=== PATIENT | male | born 1955 | race Caucasian/White ===

== ENCOUNTER 2016-11-24 13:43 | Inpatient (IN) | payer OTHER ==
[~2016-11-24] VITALS: Ht 188 cm; Wt 115.2 kg
--- NOTE | 2016-11-24 13:43 | NUR ---
ARRIVAL TO ER PATIENT ARRIVED TO ER VIA WHEELCHAIR FROM OUTPATIENT SURGICAL WAITING AREA WITH CLARENCE RAPP RN OR. REPORT RECEIVED FROM CLARENCE CALL OR. PATIENT VERBALIZED THAT WE WAS WAITING IN THE WAITING ROOM FOR HIS THAT WAS HAVING SURGERY WHEN HE BECAME LIGHT HEADED AND DIZZY. PATIENT DENIES LOC BUT VERBALIZED THAT IF HE WOULDN'T HAVE SAT DOWN HE MAY HAVE PASSED OUT. PATIENT VERBALIZED HE WAS DIAGNOSED WITH STREP THROAT YESTERDAY AND HAD NOTED A "DIZZINESS" FEELING OFF AND ON FOR A COUPLE DAYS NOW. AAOX3. PERRL. LUNGS CTA IN ALL HALE. RR 18 EVEN AND NON LABORED. O2 SAT 97% ON RA. ABD SOFT AND NON TENDER. BOWEL SOUNDS ACTIVEX4. PATIENT DENIES PAIN ANYWHERE AT THIS TIME. PATIENT DENIES ANY CHEST PAIN, TIGHTNESS, OR SHORTNESS OF BREATH, THOUGH HE DOES MENTION HAVE EXERTIONAL SOB. DR. FANG CALLED PER PATIENT AND FAMILY REQUEST. VITALS AND PATIENT STATUS REPORTED TO DR. RUTLEDGE. VERBALIZED UNDERSTANDING.
--- NOTE | 2016-11-24 13:45 | NUR ---
RT ZEB RT AT BEDSIDE FOR EKG.
--- NOTE | 2016-11-24 13:49 | NUR ---
DR LEONCIO FANG AT PT BEDSIDE AT THIS TIME
--- NOTE | 2016-11-24 13:55 | NUR ---
IV/LABS IV 20G STARTED TO R HAND MAINTAINING ASEPTIC TECHNIQUE. LABS DRAWN THOUGH IV AT THIS TIME. IV FLUSHES WELL WITH PROPER BLOOD RETURN NOTED.
[2016-11-24 14:03] LABS: BASOPHIL % 0.1 % (0.0-0.2); EOSINOPHIL # 0.1 10^3/uL (0.0-0.2); EOSINOPHIL % 0.6 % (0.0-5.0); HEMOGLOBIN 14.2 g/dL (13.9-16.3); LYMPHOCYTES # 0.7 10^3/uL (1.0-4.8); LYMPHOCYTES % 4.6 % (24.0-44.0); MEAN CELL HGB 30.1 pg (26-34); MEAN CELL HGB CONCENTRATION 32.2 g/dL (33-37); MEAN CORP VOLUME 93.4 fL (78-100); MEAN PLATELET VOLUME 9.1 fL (7.8-11.0); MONOCYTES # 0.8 10^3/uL (0.3-0.8); MONOCYTES % 5.2 % (5.0-12.0); NEUTROPHIL # 13.5 10^3/uL (1.8-7.7); NEUTROPHILS % 89.3 % (41.0-85.0); RED CELL DISTRIBUTION WIDTH 14.8 % (11.5-14.5); WHITE BLOOD CELL 15.2 10^3/uL (4.5-11.0)
[2016-11-24] MEDS ORDERED: CLOP75TA52 PO (14:21)
[2016-11-24] MEDS ORDERED: THYR16.2 PO (14:21)
[2016-11-24] MEDS ORDERED: ASPI-484 PO (14:21)
[2016-11-24] MEDS ORDERED: LISI1TAB5 PO (14:21)
[2016-11-24] MEDS ORDERED: LOVA40TA2 PO (14:21)
[2016-11-24 14:23] LABS: ABG PCO2 34.2 mmHg (35.0-45.0); ABG PH 7.477 (7.350-7.450); BE(B) 1.7 mmol/L (-2.0-2.0); HCO3act 24.7 mmol/L (22.0-26.0)
[2016-11-24] MEDS ORDERED: METO50TA2 PO (14:23)
--- NOTE | 2016-11-24 14:35 | PCM.EKG ---
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
[2016-11-24 14:37] LABS: ALANINE AMINOTRANSFERASE 20 U/L (12-78); ALKALINE PHOSPHATASE 68 U/L (50-136); ASPARTATE AMINO TRANSFERASE 15 U/L (0-35); CALCIUM 8.9 mg/dL (8.4-10.5); CARBON DIOXIDE 27.9 mmol/L (20.0-32); GLUCOSE 119 mg/dL (70-110)
--- NOTE | 2016-11-24 15:22 | DIREP ---
PROCEDURE:CHEST 2 VIEWS COMPARISON:None. INDICATIONS:SYNCOPE, CAD FINDINGS: LUNGS/PLEURA:No significant pulmonary parenchymal abnormalities. No effusions. VASCULATURE:Normal. Unremarkable pulmonary vasculature. CARDIAC:Normal. No cardiac silhouette abnormality or cardiomegaly. Tortuous aorta. MEDIASTINUM:Normal. No visible mass or adenopathy. BONES:Normal. No fracture or visible bony lesion. OTHER:Negative. CONCLUSION:No acute cardiopulmonary abnormalities. Dictated by: Ramesh Pacheco M.D. on 11/24/2016 at 03:20 PM
--- NOTE | 2016-11-24 15:42 | NUR ---
Sepsis Protocol Patient meets sepsis protocol guidelines with WBC 15.2, HR 98-105 with source of infection. Dr. Carson notified in order to start fluid resuscitation, verbalized he will be to the hospital shory to see the patient and to hold off on fluids until he arrives.
[2016-11-24] MEDS ORDERED: NS 1000ML 1,000 ML ONE (15:43)
--- NOTE | 2016-11-24 15:52 | NUR ---
DR LEONCIO FANG IN ED AT THIS TIME
--- NOTE | 2016-11-24 15:56 | NUR ---
Sepsis protocol Dr. Carson verbalized to [facility] but the amount of fluid will be reduced per the patients co-morbidities. NS 1000ml @ 500ml/hr started at this time per Dr. Carson.
[2016-11-24] MEDS ORDERED: NS 1000ML 1,000 ML IV ONE ×3 (16:00→18:00)
[2016-11-24] MEDS ORDERED: ZOSYN 3.375 GRAM VIAL 3.375 GM in NS 100ML 100 ML IV SCH (16:00)
[2016-11-24 16:36] LABS: BILIRUBIN,URINE NEGATIVE (NEGATIVE); UROBILINOGEN,URINE NORMAL (NEGATIVE)
[2016-11-24 16:53] LABS: APPEARANCE,URINE CLOUDY (CLEAR); UA COLOR YELLOW (YELLOW)
--- NOTE | 2016-11-24 17:50 | NUR ---
BOLUS NS BOLUS STARTED 1200ML/HR VIA PUMP.
--- NOTE | 2016-11-24 17:52 | NUR ---
ADMIT RECEIVED PT FROM ER VIA WC IN STABLE CONDITION. RECEIVED BEDSIDE REPORT AND ASSUMED CARE,
[2016-11-24] MEDS ORDERED: NORCO 5MG PO ONE (18:10)
--- NOTE | 2016-11-24 18:40 | NUR ---
Received report from off going shift
[2016-11-24] MEDS: TYLENOL PO PRN (18:58)
[2016-11-24 19:02] VITALS: BP 166/78
[2016-11-24] MEDS: CRESTOR PO SCH (21:00)
[2016-11-24 21:03] LABS: ABG PCO2 34.6 mmHg (35.0-45.0); ABG PH 7.466 (7.350-7.450); BE(B) 1.1 mmol/L (-2.0-2.0); HCO3act 24.4 mmol/L (22.0-26.0); pO2 64.7 mmHg (75.0-100.0)
[2016-11-24] MEDS: LOPRESSOR PO SCH (21:35)
[2016-11-24] MEDS: NS 1000ML/KCL 20MEQ 1,000 ML IV SCH ×2 (22:40→23:46)
[2016-11-24] MEDS: ZOSYN 3.375 GRAM VIAL 3.375 GM in NS 100ML 100 ML IV SCH (23:45)
[2016-11-25 00:17] VITALS: BP 131/75
[2016-11-25 04:36] VITALS: BP 139/76
[2016-11-25] MEDS: NS 1000ML/KCL 20MEQ 1,000 ML IV SCH (05:20)
[2016-11-25] MEDS: ZOSYN 3.375 GRAM VIAL 3.375 GM in NS 100ML 100 ML IV SCH ×4 (05:40→23:28)
[2016-11-25 05:42] LABS: HEMOGLOBIN 12.5 g/dL (13.9-16.3); MEAN CELL HGB CONCENTRATION 31.7 g/dL (33-37); MEAN CORP VOLUME 94.7 fL (78-100); RED CELL DISTRIBUTION WIDTH 14.9 % (11.5-14.5); WHITE BLOOD CELL 16.9 10^3/uL (4.5-11.0)
[2016-11-25 05:59] LABS: CALCIUM 8.1 mg/dL (8.4-10.5); CARBON DIOXIDE 25.1 mmol/L (20.0-32)
--- NOTE | 2016-11-25 07:33 | HPH ---
ADMIT DATE: 11/24/2016 CHIEF COMPLAINT: Dizziness, near syncopal episode, 103 fever the night before. 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 He denied any definite chills, but was having some degree of shortness of breath and had generalized constitutional symptoms with malaise, lethargy, and weakness, and has not been consuming enough fluids, and his temperature had been brought down with nonsteroidal agents. He saw the nurse practitioner in the morning and was prescribed a penicillin preparation, and he was in the waiting area where his was having a knee surgery done, and he became very dizzy and lightheaded, and denied any diaphoresis, no chest pain. He had progressive shortness of breath and was brought to the Emergency Room where his temperature was normal because he had taken a nonsteroidal earlier on, but he complained of weakness and dizziness, and the possibility of sepsis was considered. His heart rate is around 100 while he is on a beta paramjit, metoprolol 50 mg twice a day. He has had a prior myocardial infarction about 7 years ago, and based on historical facts, has had right coronary stenting done and was told that he did not have much damage to the left ventricle. With his heart rate of 100, lactic acid of 1.8, and leukocytosis, he was admitted with a diagnosis of possible sepsis, rule out urosepsis, for further evaluation and management. ALLERGIES: NONE KNOWN. MEDICATIONS: He has been on home medicines, which include lisinopril-HCT 20-12.5 once a day, lovastatin 40 mg once a day, aspirin 81 mg once a day, Plavix 75 mg once a day, metoprolol 50 mg twice a day, and thyroid in a natural thyroid form at 16.25 mg once a day. PAST MEDICAL HISTORY: He has a history of coronary artery disease and acute coronary event 7 years ago post stenting, moderately severe hypertension, hypertensive heart disease, obesity with BMI 32.2, history of snoring, but no definite manifestations of obstructive sleep apnea. No history of any diabetes SOCIAL HISTORY: No history of smoking. No history of any ethanol abuse. FAMILY HISTORY: Not much available from the patient, but there is a positive history of heart problems in the family. REVIEW OF SYSTEMS: Fatigue, dyspnea, recent fever. No definite chills and no obvious ____ complaint at this time. No known history of any prostate disease. PHYSICAL EXAMINATION: VITAL SIGNS: On examination when I saw him, his heart rate was 100, blood pressure 147/77 mmHg, respirations 16, and saturation 97%. GENERAL APPEARANCE: He was in no distress. HEENT: Unremarkable, actually, the throat did not appear to be significantly congested. No tonsillar enlargement was noted. NECK: No lymphadenopathy was felt, no JVD, no definite carotid bruits. CHEST: Thick chest wall. PULMONARY: Lungs with poor respiratory effort. No adventitious lung sounds noted. HEART: S1 and S2 normal. Certain degree of tachycardia noted. ABDOMEN: Rounded. No organomegaly. EXTREMITIES: Distal pulses fairly well felt. NEUROLOGIC: No focal neuro deficit documented. LABORATORY DATA: EKG: Regular sinus rhythm with small QRS complexes, probably due to thick chest wall and very small diminutive Q-wave in lead 3 and aVF noted. Lab data showed white count 15.2, hemoglobin 14.2, and shift to the left with neutrophils of 89.3. Chemistries were essentially normal. ProBNP 468 and troponin less than 0.02. Electrolytes were normal. BUN 19 and creatinine 0.98. Initial blood gas: pH 7.47, with pCO2 34, pO2 74, lactic acid 1.6. His carboxyhemoglobin 1.6, which is mildly elevated, I am not sure why. Deoxyhemoglobin was 5.5 and went up to 6.8. He is not a smoker. Urine seemed to be positive with 30 mg/dL protein, trace blood, nitrates positive, leukocyte esterase significantly positive, WBC 10 to 25 per high power field, and many bacteria were noted. Blood cultures and urine cultures were done. A chest x-ray was normal. An echocardiogram done in the Emergency Room showed mild left ventricular hypertrophy. Initially, he was thought to have wall motion abnormality at the apex, but I think his overall LV function seems to be intact, and no regional wall motion abnormality was documented. Mild left atrial enlargement, four-chamber longitudinal dimension. Generous top-normal RV size, but no significant enlargement was noted. The right atrium was normal in size, no obvious valvular abnormality documented. IMPRESSION: Sepsis based on clinical findings of urosepsis, ____, hypertension, hypertensive heart disease, mild left ventricular hypertrophy, probably chronic diastolic heart failure, no obvious mitral Doppler manifestations with reversal of E to A ratio ____ normalization ____ could contribute to grade 2 diastolic dysfunction. Definite sinus tachycardia and lactic acid elevation, which may be suggestive of early sepsis. CAD, post coronary event 7 years ago, post RCA stenting. Obesity, BMI 32.2. RECOMMENDATIONS: At this time we will start him on fluid challenge, fluid resuscitation, repeat lactic acid, blood work, and Zosyn IV. Cultures are done. Further management will depend on the clinical course. Laxmichand MD Alli DR: SUSANA/sarah JOB# [id number]
[2016-11-25 08:00] VITALS: BP 148/72
--- NOTE | 2016-11-25 09:16 | NUR ---
UROLOGY CONSULT DR JUAREZ AT BEDSIDE VISITING WITH PT
[2016-11-25] MEDS: ASPIRIN EC PO SCH (09:25)
[2016-11-25] MEDS: D5W-1/2 NS/KCL 20MEQ 1,000 ML IV SCH ×2 (09:25→19:08)
[2016-11-25] MEDS: PLAVIX PO SCH (09:25)
--- NOTE | 2016-11-25 09:25 | NUR ---
HODGSON 16F HODGSON INSERTED BY DR JUAREZ, RECTAL EXAM DONE.
[2016-11-25] MEDS: LOPRESSOR PO SCH ×2 (09:26→21:12)
[2016-11-25] MEDS: PROTONIX PO SCH (09:26)
[2016-11-25] MEDS: ARMOUR THYROID PO SCH (09:33)
--- NOTE | 2016-11-25 10:45 | CNH ---
DATE OF CONSULTATION: 11/25/2016 HISTORY OF PRESENT ILLNESS: This is a 61-year-old white male who was referred for urological evaluation due to urosepsis. The patient was admitted yesterday with high fever and a high white count and the urinalysis showed a lot of WBC in the urine and the white count was 16,000 today. The BUN and creatinine is normal and the PSA is 12+. The patient was also complaining of incomplete bladder emptying for the past few weeks with weakness and slow urinary stream. The abdomen is soft, no flank tenderness, no suprapubic tenderness, but the patient has severe urgency and frequency and nocturia twice. After post-voiding, the Flores catheter was inserted, which still has over 200 mL. So, the catheter was left in place. Rectal exam showed a prostate of 2+, firm, smooth, no nodule noted. The case was discussed with the patient and also with his daughter Archana and with Dr. Carson. PLAN: We will continue current medications and we will wait for the result of the urine culture. Gal Ruff MD DR: LEOLA/sarah JOB# [id number]
[2016-11-25 10:53] LABS: ABG PCO2 34.2 mmHg (35.0-45.0); ABG PH 7.472 (7.350-7.450); BE(B) 1.3 mmol/L (-2.0-2.0); HCO3act 24.4 mmol/L (22.0-26.0); pO2 60.1 mmHg (75.0-100.0)
[2016-11-25 12:06] VITALS: BP 129/62
--- NOTE | 2016-11-25 12:50 | NUR ---
DISCHARGE PLAN CM/SS VISITED WITH PATIENT CONCERNING HIS DISCHARGE PLAN AND NEED. PATIENT STATED HE LIVES WITH HIS IN [place], [place] WHOM IS ALSO ADMITTED IN THE [facility]. PATIENT STATED HE IS VERY INDEPENDENT ON ADLS, DOES NOT USE ANY TYPE OF DME FOR ASSISTANCE AND WORKS DAILY IN A [employer]ARD WORK[employer]OP. PATIENT DENIES NEEDS @ THIS TIME WITH CONTACT INFORMATION PROVIDED. CURRENT GOAL FOR PATIENT IS TO RETURN BACK HOME WITH TO ROUTINE SELF CARE UPON DISCHARGE. CM/SS TO CONTINUE TO FOLLOW PATIENTS PLAN OF CARE AND FOR FURTHER DISCHARGE NEEDS.
[2016-11-25] MEDS: URISPAS PO SCH ×2 (15:25→21:12)
[2016-11-25] MEDS: TYLENOL PO PRN (15:52)
[2016-11-25 16:11] VITALS: BP 134/71
--- NOTE | 2016-11-25 18:51 | NUR ---
Received report from off going shift
[2016-11-25 19:31] VITALS: BP 137/72
[2016-11-25] MEDS: CRESTOR PO SCH (21:00)
[2016-11-26 00:37] VITALS: BP 146/82
[2016-11-26] MEDS: D5W-1/2 NS/KCL 20MEQ 1,000 ML IV SCH ×3 (01:22→18:15)
[2016-11-26 04:35] VITALS: BP 141/73
[2016-11-26] MEDS: ZOSYN 3.375 GRAM VIAL 3.375 GM in NS 100ML 100 ML IV SCH (05:35)
--- NOTE | 2016-11-26 06:30 | NUR ---
REPORT received report assumed care of patient. Patient denies any wants or needs at this time. No s/s of distress noted. call light in reach. will continue to monitor.
[2016-11-26 06:57] VITALS: BP 144/88
[2016-11-26 08:49] LABS: BASOPHIL % 0.1 % (0.0-0.2); EOSINOPHIL # 0.1 10^3/uL (0.0-0.2); EOSINOPHIL % 0.5 % (0.0-5.0); HEMOGLOBIN 11.7 g/dL (13.9-16.3); LYMPHOCYTES # 0.9 10^3/uL (1.0-4.8); LYMPHOCYTES % 6.5 % (24.0-44.0); MEAN CELL HGB 29.8 pg (26-34); MEAN CELL HGB CONCENTRATION 31.4 g/dL (33-37); MEAN CORP VOLUME 94.9 fL (78-100); MEAN PLATELET VOLUME 9.4 fL (7.8-11.0); MONOCYTES # 0.6 10^3/uL (0.3-0.8); MONOCYTES % 4.1 % (5.0-12.0); NEUTROPHIL # 12.3 10^3/uL (1.8-7.7); NEUTROPHILS % 88.4 % (41.0-85.0); RED CELL DISTRIBUTION WIDTH 14.8 % (11.5-14.5); WHITE BLOOD CELL 13.9 10^3/uL (4.5-11.0)
[2016-11-26 09:43] LABS: CALCIUM 8.2 mg/dL (8.4-10.5); CARBON DIOXIDE 25.6 mmol/L (20.0-32)
[2016-11-26] MEDS: LEVAQUIN 150 ML IV SCH (09:44)
[2016-11-26] MEDS: PROTONIX PO SCH (09:46)
[2016-11-26] MEDS: ARMOUR THYROID PO SCH (09:46)
[2016-11-26] MEDS: LOPRESSOR PO SCH ×2 (09:46→21:43)
[2016-11-26] MEDS: PLAVIX PO SCH (09:46)
[2016-11-26] MEDS: ASPIRIN EC PO SCH (09:46)
[2016-11-26] MEDS: URISPAS PO SCH ×3 (09:46→21:43)
--- NOTE | 2016-11-26 10:13 | PNH ---
DATE: 11/26/2016 The patient is afebrile, vital signs are stable. The Flores catheter is in place. Urine is clear. The abdomen is soft, no flank tenderness. No suprapubic tenderness. The CBC today, the white count is down to 14,900 and we are still awaiting for the result of the urine culture and sensitivity today. Currently, the patient is doing well and is up and about. Gal Ruff MD DR: LEOLA/sarah JOB# [id number]
[2016-11-26 11:32] VITALS: BP 142/88
--- NOTE | 2016-11-26 12:11 | DIREP ---
PROCEDURE:CHEST 2 VIEWS COMPARISON:[facility], CR, XRAY CHEST 2 VWS, 11/24/2016, 03:01 PM. INDICATIONS:CAD FINDINGS: LUNGS/PLEURA:No significant pulmonary parenchymal abnormalities. No effusions. VASCULATURE:Normal. Unremarkable pulmonary vasculature. CARDIAC:Normal. No cardiac silhouette abnormality or cardiomegaly. MEDIASTINUM:Normal. No visible mass or adenopathy. BONES:Normal. No fracture or visible bony lesion. OTHER:Negative. CONCLUSION:No acute disease. No significant change has occurred. Dictated by: Arron Nguyen MD on 11/26/2016 at 12:09 PM
[2016-11-26 16:07] VITALS: BP 137/75
[2016-11-26 19:34] LABS: DIFFERENTIAL COMMENT NORMAL; LYMPHOCYTE 8 % (25-36); MONOCYTE 1 % (3-9); SEGMENTED NEUTROPHILS 90 % (31-76)
[2016-11-26 20:00] VITALS: BP 158/98
[2016-11-26] MEDS ORDERED: POTA10TA6 PO (20:25)
[2016-11-26] MEDS ORDERED: LOSA25TA2 PO (20:25)
[2016-11-26] MEDS ORDERED: FLAV100T PO (20:25)
[2016-11-26] MEDS ORDERED: ROSU10TA PO (20:25)
[2016-11-26] MEDS ORDERED: LEVO500T51 PO (20:25)
[2016-11-26] MEDS ORDERED: PANT40TA3 PO (20:25)
[2016-11-27] VITALS: BP 157/85
[2016-11-27] MEDS ORDERED: D5W-1/2 NS/KCL 20MEQ 1,000 ML ONE (02:24)
[2016-11-27] MEDS: D5W-1/2 NS/KCL 20MEQ 1,000 ML IV SCH (02:27)
--- NOTE | 2016-11-27 03:59 | PNH ---
DATE: 11/25/2016 SUBJECTIVE: The patient is feeling overall much improved. His vital signs are stable with blood pressure of 137/72 with a pulse of 68, respirations 16, 98.3 temperature and he had 99 temperature early in the morning and 97 SO2 on room air. His intake and output shows a significant positive balance of over [address] Ruff was called in consultation because of UTI and possible urosepsis and it was determined that he has had symptoms of prostatism with back pain and no definite dysuria, but he has got urinary retention, 300 mL of residual urine was documented on catheterization of the bladder. LABORATORY DATA: His white count was elevated to 16.9 from 15.2 with hemoglobin of 12.5 and his chemistries show potassium of 3.5 and calcium low at 8.1, slightly decreased total protein and albumin due to sepsis and total PSA was 12.04. His lactic acid had gone down from 1.6 to 1.2, but there was a spurious reading of 2.7, which does not seem to be correct and at the present time, it is back to 1.7. His cultures are awaited, blood culture are negative, but the urine culture showed Gram-negatives and in view of the Gram-negatives, may be better off with Levaquin 750 mg daily. IMPRESSION: Sepsis, urosepsis, hypertension, CAD, post-coronary stenting, right coronary artery 7 years ago, intact LV systolic function, obesity, PSA elevation, rule out prostatitis versus underlying prostate pathology such as cancer. At the present time one may consider this to be an inflammatory marker and with the improvement of acute infection, this may come back to normal, then he will require further evaluation by urologist. PLAN: At this time, continue same therapy, fluid resuscitation to be continued with a lower rate of 125 mL per hour and potassium intake of 30 mEq per liter and may switch him after the culture is present on Levaquin 750 mg daily, which is a better antibiotic for urosepsis. Dr. Ruff in consultation. Laxmichand MD Alli DR: SUSANA/sarah JOB# [id number]
[2016-11-27 04:29] VITALS: BP 152/84
[2016-11-27 05:48] LABS: HEMOGLOBIN 12.1 g/dL (13.9-16.3); MEAN CELL HGB CONCENTRATION 31.4 g/dL (33-37); MEAN CORP VOLUME 95.5 fL (78-100); MEAN PLATELET VOLUME 9.8 fL (7.8-11.0); RED CELL DISTRIBUTION WIDTH 14.5 % (11.5-14.5); WHITE BLOOD CELL 8.8 10^3/uL (4.5-11.0)
[2016-11-27 06:28] LABS: CALCIUM 8.5 mg/dL (8.4-10.5); CARBON DIOXIDE 30.6 mmol/L (20.0-32)
[2016-11-27] MEDS: ASPIRIN EC PO SCH (08:55)
[2016-11-27] MEDS: PROTONIX PO SCH (08:55)
[2016-11-27] MEDS: URISPAS PO SCH (08:55)
[2016-11-27] MEDS: ARMOUR THYROID PO SCH (08:55)
[2016-11-27] MEDS: PLAVIX PO SCH (08:56)
[2016-11-27] MEDS: LOPRESSOR PO SCH (08:56)
[2016-11-27] MEDS: LEVAQUIN 150 ML IV SCH (08:58)
[2016-11-27] MEDS ORDERED: COZAAR PO SCH (09:00)
[2016-11-27] MEDS ORDERED: KLOR-CON 10 PO SCH (09:00)
--- NOTE | 2016-11-27 09:01 | DSH ---
DATE OF DISCHARGE: 11/27/2016 FINAL DIAGNOSES: Sepsis, Escherichia Coli, urinary tract infection, hypertension, hypertensive heart disease, left ventricular dilatation on echo with probably hypertensive heart disease and chronic diastolic heart failure, intact LV systolic function, old myocardial infarction, post RCA stenting, dyslipidemia. Please refer to my History and Physical to the point of my impression. HOSPITAL COURSE: The patient is a 61-year-old white male who presented with a 103-degree Fahrenheit fever the night before and had chills and had a syncopal episode while waiting in the surgical waiting area when his was having a knee surgery done. He was brought to the Emergency Room and was noted to be aseptic with a white count of 15.2 with lactic acid of 1.6 and urine loaded with bacteria and pus, as well as E. Coli growing in the urine culture. An x-ray was normal and his LV was dilated. EF was normal. His potassium was low, which is up to 4 now. He has gotten better, and with fluid resuscitation and antibiotics, is being dismissed to home on: 1. Flavoxate, which is Urispas 100 mg 3 times a day. 2. Levaquin 500 mg daily for 7 days. 3. Losartan 25 mg once a day. 4. Protonix 40 mg once a day. 5. Potassium 10 mEq once a day. 6. Crestor 10 mg once a day. 7. Aspirin 81 mg once a day. 8. Plavix 75 mg once a day. 9. Metoprolol 50 mg twice a day. 10. Thyroid 16.2 mg once a day. DISCONTINUE MEDICATIONS: Stop lisinopril-HCT and lovastatin. FOLLOWUP INSTRUCTIONS: Follow up in one week if present, and may require a Lexiscan to assess his ischemic substrate. Laxmichand MD KENIA Carson: SUSANA/sarah JOB# [id number]
[2016-11-27] MEDS ORDERED: TAMS-14 PO (09:28)
[2016-11-27 10:00] VITALS: BP 152/84
--- NOTE | 2016-11-27 10:15 | NUR ---
Discharge Patient received discharge instructions. Denies any further questions or concerns. Medications called to [facility].
--- NOTE | 2016-11-27 10:57 | PNH ---
DATE: 11/26/2016 SUBJECTIVE: The patient is doing much better, afebrile. OBJECTIVE: VITAL SIGNS: Stable, afebrile. PULMONARY: The lungs are clear. CARDIOVASCULAR: Heart sounds are normal. No CVA tenderness. LABORATORY DATA: White count 13.9. Hemoglobin 11.7. Gram-negative urine, probably E. coli, we will await cultures. DISPOSITION: Discharge planning on November 27, 2016. Taylor Carson MD DR: SUSANA/sarah JOB# [id number]
== END 2016-11-27 10:15 | disposition home or self-care (01) | DRG 872 ==
LOC: ER 13:43 → MS 16:01 → EDPENDDISTM 11-27 10:15
PROVIDERS: ADMIT Specialist; ATTEND Specialist
PROC: 0T9B70Z Drainage of Bladder with Drainage Device, Via Natural or Artificial Opening (ICD-10-PCS; principal; 2016-11-25)
DX: A41.9 Sepsis, unspecified organism (principal); I11.0 Hypertensive heart disease with heart failure; I50.32 Chronic diastolic (congestive) heart failure; N39.0 Urinary tract infection, site not specified; E66.9 Obesity, unspecified; E78.5 Hyperlipidemia, unspecified; R33.9 Retention of urine, unspecified; I25.10 Atherosclerotic heart disease of native coronary artery without angina pectoris; B96.20 Unspecified Escherichia coli [E. coli] as the cause of diseases classified elsewhere; I25.2 Old myocardial infarction; Z95.5 Presence of coronary angioplasty implant and graft; Z68.32 Body mass index [BMI] 32.0-32.9, adult
CPT/HCPCS: 36415; 36600; 71020; 80053; 81000; 82550; 82553; 82803; 82948; 83605; 83735; 83880; 84153; 84443; 84484; 85025; 85027; 85379; 85610; 86677; 87040; 87077; 87086; 87186; 93005; 93307; 96360; 99285; A4338; J1642; J1956; J2543; J3480; J7030; J7050; J7070

== ENCOUNTER → 2016-12-18 | Outpatient (CLI) | payer OTHER ==
[~2016-12-18] MED LIST: ASPI-484 PO; CLOP75TA52 PO; FLAV100T PO; LEVO500T51 PO; LISI1TAB5 PO; LOSA25TA2 PO; LOVA40TA2 PO; METO50TA2 PO; PANT40TA3 PO; POTA10TA6 PO; ROSU10TA PO; TAMS-14 PO; THYR16.2 PO
== END | disposition home or self-care (01) ==
LOC: RT 08:34
PROVIDERS: ATTEND Specialist
DX: J44.9 Chronic obstructive pulmonary disease, unspecified (principal); I25.10 Atherosclerotic heart disease of native coronary artery without angina pectoris; I25.2 Old myocardial infarction; Z87.891 Personal history of nicotine dependence
CPT/HCPCS: 36415; 80061; 86140; 94060

== ENCOUNTER 2018-04-29 06:50 | Inpatient (IN) | payer OTHER, MEDICARE ==
[2018-04-28 14:10] VITALS: BP 153/90
--- NOTE | 2018-04-28 16:04 | DIREP ---
PROCEDURE:CHEST 2 VIEWS COMPARISON:[facility], CR, XRAY CHEST 2 VWS, 11/26/2016, 11:21 AM. INDICATIONS:PRE OP, CARDIAC CATH, CAD FINDINGS: LUNGS/PLEURA:Apparent mild hyperinflation. No suspicious airspace consolidation, pleural effusion or pneumothorax is identified. VASCULATURE:Normal. Unremarkable pulmonary vasculature. CARDIAC:Normal. No cardiac silhouette abnormality or cardiomegaly. MEDIASTINUM:Normal. No visible mass or adenopathy. BONES:No acute abnormality. OTHER:Negative. CONCLUSION: 1. Stable chest without acute cardiopulmonary abnormality. Dictated by: Marko Donovan M.D. On 04/28/2018 at 04:02 PM
[2018-04-28 16:21] LABS: BASOPHIL % 0.3 % (0.0-0.2); EOSINOPHIL # 0.2 10^3/uL (0.0-0.2); HEMOGLOBIN 15.3 g/dL (13.9-16.3); LYMPHOCYTES # 1.8 10^3/uL (1.0-4.8); LYMPHOCYTES % 15.9 % (24.0-44.0); MEAN CELL HGB 30.2 pg (26-34); MEAN CELL HGB CONCENTRATION 32.8 g/dL (33-37); MEAN CORP VOLUME 92.1 fL (78-100); MEAN PLATELET VOLUME 9.8 fL (7.8-11.0); MONOCYTES # 0.9 10^3/uL (0.3-0.8); MONOCYTES % 8.2 % (5.0-12.0); NEUTROPHIL # 8.3 10^3/uL (1.8-7.7); NEUTROPHILS % 73.3 % (41.0-85.0); RED CELL DISTRIBUTION WIDTH 15.3 % (11.5-14.5); WHITE BLOOD CELL 11.3 10^3/uL (4.5-11.0)
[2018-04-28 16:28] LABS: CALCIUM 8.7 mg/dL (8.4-10.5); CARBON DIOXIDE 29.8 mmol/L (20.0-32)
--- NOTE | 2018-04-28 17:08 | PCM.EKG ---
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
[2018-04-29] VITALS (42 sets, daily range): BP systolic 114–210; BP diastolic 58–95
[~2018-04-29] VITALS: Ht 188 cm; Wt 118.8 kg
[~2018-04-29 06:50] MED LIST changes: +HYDR25TA9 PO; +LEVO75TA6 PO; +LOSA100T14 PO; +METO-238 PO; -METO50TA2 PO; +METO50TA6 PO; +NS 1000ML 1,000 ML ONE; +PHENERGAN PO ONE; -ROSU10TA PO; +ROSU10TA2 PO; +ROSU20TA2 PO; +VALIUM PO ONE
[2018-04-29] MEDS ORDERED: VERSED ONE ×2 (06:54→08:09)
[2018-04-29] MEDS ORDERED: SUBLIMAZE ONE (06:54)
[2018-04-29] MEDS ORDERED: NS 1000ML 1,000 ML ONE (06:54)
[2018-04-29] MEDS ORDERED: HEPARIN ONE (06:55)
[2018-04-29] MEDS ORDERED: XYLOCAINE ONE (06:55)
[2018-04-29] MEDS: NS 1000ML 1,000 ML IV SCH ×2 (07:21→20:20)
[2018-04-29] MEDS ORDERED: NS 50ML 50 ML IV ONE (08:19)
[2018-04-29] MEDS ORDERED: ANGIOMAX IV ONE (08:19)
[2018-04-29] MEDS ORDERED: ASPIRIN ONE ×2 (08:29)
[2018-04-29] MEDS ORDERED: BRILINTA ONE (08:29)
[2018-04-29] MEDS ORDERED: PROTONIX PO ONE (08:30)
[2018-04-29] MEDS ORDERED: NS 1000ML 1,000 ML IV SCH (09:07)
--- NOTE | 2018-04-29 09:17 | NUR ---
Arrival Patient arrived on unit via stretcher to ICU 6. Report received from Amaury Martinez RN from photographic laboratory supervisor. Assumed care of pt. Angiomax infusing, to be discontinued at [address] Carson order. Heart cath site to right groin assessed, no bleeding, swelling, redness, bruising, heat or pain noted. Site soft. Oriented pt and to room. Offered pt fluids and snacks. Educated pt on flat time for 2 hours after angiomax is turned off. Pt able to sit up at 1135, pt verbalized understanding. Instructed pt to keep right leg straight, pt verbalized understanding. Educated pt on s/s of hematoma or bleeding, pt verbalized understanding. Will continue to monitor. Call light within reach.
[2018-04-29] MEDS ORDERED: ULTRAM PO PRN (09:30)
[2018-04-29] MEDS ORDERED: NORCO 5MG PO PRN (09:30)
[2018-04-29] MEDS ORDERED: SUBLIMAZE IV PRN (09:30)
[2018-04-29] MEDS ORDERED: TYLENOL PO PRN (09:30)
--- NOTE | 2018-04-29 09:52 | [facility] ---
DATE OF SERVICE: 04/29/2018 HEART CATH REPORT PRECATHETERIZATION DIAGNOSES: Abnormal myocardial perfusion scan, inferoposterior ischemia, posterior wall myocardial infarction, 7 years ago RCA stent, hypertension, hypertensive heart disease, uncontrolled risk factors of dyslipidemia and prior former smoker and obesity. POSTCATHETERIZATION DIAGNOSES: Left main is a fair size vessel. LAD is a fair size vessel with a fairly large diagonal branch and LAD is fully patent with a diagonal branch. Circumflex is a good size vessel, though the obtuse marginal branch is fully patent. Right coronary artery is a large dominant vessel with proximal RCA showing a critical eccentric 90% in-stent stenosis and balloon dilatation followed by deployment of 3.25 Xience Karen stent, 3.25 x 28 mm stent was deployed followed by post-stent balloon dilatation and good results were obtained. Left ventricle is normal in size with good wall contractility and inferoposterior wall shows mild hypokinesis, ejection fraction was around 48-50%. Descending aortic cineangiography was performed, which showed ectasia of the descending aorta and runoff showed patent both the iliacs and both femorals up to the popliteal level with mild atherosclerosis without any flow obstruction documented. ANESTHESIA: 2% lidocaine. PREOPERATIVE MEDICATIONS: Phenergan 50 mg p.o., Valium 2.5 mg p.o., Versed 3 mg IV, fentanyl 37.5 mcg IV. ANTICOAGULATION: With heparin 2000 units intra-arterially, 2000 units in the flush solution, 1000 units in the dye solution. Dye used is Omnipaque, total amount is 257 mL. CATHETERS: JL4 6-Ivorian, JR4 6-Ivorian, 6-Ivorian angled pigtail catheter and 6-Ivorian right coronary guiding catheter with sideholes. ARTERIAL TIME: 35 minutes, which includes the PCI. FLUOROSCOPY TIME: 9.2 minutes. PROCEDURES: Left heart catheterization, bilateral selective coronary arteriography, left ventriculography and descending aortic cineangiography and PCI of the right coronary artery by Dr. Crandall. NARRATION OF PROCEDURE: Under local anesthesia, right femoral artery was punctured percutaneously by arterial needle, guide wire passed in right femoral artery, 6-Ivorian Cordis sheath introduced, side port of the sheath used for femoral arterial pressure monitoring. Sheath anchored with suture. Left Bryce catheter introduced over guide wire into ascending aorta left coronary artery cannulated and left coronary angiography performed in LITHUANIAN and HACKETT projections with craniocaudal applications to visualize all branches. Left catheter exchanged for right coronary catheter and right coronary angiography performed in LITHUANIAN and HACKETT. This catheter exchanged for 6-Ivorian pigtail catheter and catheter crossed the aortic valve and left ventricular LVEDP measured and LV gram performed in 30 degrees HACKETT view with 30 mL Omnipaque dye and panning of descending aorta attempted. Patient tolerated procedure well. No complications of procedure. Angio-Seal deployed for hemostasis. HEMODYNAMICS: LVEDP is 12 mm, LV pressure is 120/12, femoral artery pressure was 120/69 with a mean of 85. No gradient across the aorta on pullback of the central catheter. FINAL CONCLUSION: Patent left main, fair size LAD with a bifurcated large diagonal branch, fully patent. Circumflex good size vessel, fully patent. RCA dominant vessel with proximal in-stent stenosis 90% eccentric stenosis with a PCI performed with balloon dilatation followed by deployment of stent and good results were obtained. Good SUKUMAR 3 flow was noted in the distal RCA. LV showed mild inferoposterior hypokinesis and ejection fraction was about 48-50%. PLAN: At this time, admit the patient in ICU. We will continue Angiomax, aspirin and Brilinta and his home medications. Laxmichand MD Alli DR: SUSANA/sarah JOB# [id number]
--- NOTE | 2018-04-29 12:12 | HPH ---
ADMIT DATE: 04/29/2018 A 63-year-old male. CHIEF COMPLAINT: Abnormal myocardial perfusion scan for heart catheterization. Both heart catheterization and PCI performed for a 90% in-stent stenosis of the right coronary artery and admitted for post-coronary stenting to ICU. HISTORY OF PRESENT ILLNESS: The patient is a 63-year-old white male with known history of hypertension, hypertensive heart disease, and about 8-9 years ago had an acute coronary event with the inferior infarct and had a PCI for the inferior wall myocardial infarction of the stent in the right coronary artery and he has got an inferoposterior ischemic substrate on the myocardial perfusion scan at the present time. He underwent cardiac catheterization and in-stent stenosis of 90% was noted in the right coronary stent and PCI was performed. The patient was admitted in the ICU for observation post-PCI. ALLERGIES: None known. MEDICATIONS: Levothroid 75 mcg once a day, metoprolol 100 mg once a day, Plavix 75 mg once a day, Crestor 20 mg once a day, hydrochlorothiazide 12.5 mg once a day, losartan 100 mg once a day, potassium 10 mEq once a day. PAST MEDICAL HISTORY: Old myocardial infarction, hypertension, hypertensive heart disease, inferior infarct, right coronary stent, obesity, chronic diastolic heart failure, mild systolic heart failure. See the details on my notes provided from the office. SOCIAL HISTORY: He is a former smoker, smoked 2 packs a day, not smoking at the present time. No history of any ethanol abuse. FAMILY HISTORY: He has history of heart problem in the family. Father had COPD. Mother of cancer of the stomach. PHYSICAL EXAMINATION: GENERAL: He is alert, awake, oriented. He weighs 260 pounds, 6 feet 2 inches tall, 150/80 blood pressure, pulse is 65, and respirations 18. HEENT: Unremarkable. NECK: No JVD, no carotid bruits. CHEST: Thick chest wall. Poor air entry bilaterally. HEART: Sounds S1, S2 normal. No murmurs or gallops. ABDOMEN: Truncal obesity. No organomegaly. Bowel sounds present. MUSCULOSKELETAL: Peripheral pulses fairly well felt. NEUROLOGIC: Intact. IMPRESSION: Right coronary in-stent stenosis post PCI with balloon dilatation and stent deployment, patient observed in ICU. Angiomax to be continued along with Brilinta 90 mg twice a day, aspirin 81 mg once a day, and continue home medications. Taylor Carson MD DR: Ashok JOB# [id number]
[2018-04-29] MEDS ORDERED: TOPROL XL PO ONE (12:29)
[2018-04-29] MEDS ORDERED: COZAAR ONE (12:29)
[2018-04-29] MEDS: COZAAR PO SCH (12:33)
[2018-04-29] MEDS: TOPROL XL PO SCH ×2 (12:33→21:27)
--- NOTE | 2018-04-29 13:16 | OPH ---
DATE OF SURGERY: 04/29/2018 ATTENDING: Dr. Taylor Carson. INDICATIONS: A 63-year-old gentleman with a history of prior PCI with stenting with diagnostic angiogram per Dr. Carson revealing 70%-80% in-stent restenosis. PROCEDURES: 1. Selective right coronary arteriography. 2. PTCA with stenting of RCA. 3. Angiomax bolus and constant infusion during the procedure. 4. Conscious sedation. TECHNIQUE: Right percutaneous femoral arteriotomy was utilized for vascular access. I engaged the right coronary artery with a 6-Lao Bryce right guiding catheter with side holes. I wired the RCA with a 0.014 rapid exchange BMW wire. I predilated the RCA stented site with a 3.0 mm plain balloon and then advanced and deployed a 3.25 mm diameter x 28 mm length Karen Xpedition drug-eluting stent at 16 atmospheres. I followed this with a 3.25 NC to 18 atmospheres overlapping the entire stented site. Final angiogram revealed 0% residual stenosis and brisk SUKUMAR 3 distal flow. FINAL CONCLUSIONS: 1. Selective right coronary arteriography. 2. PTCA with stenting of the RCA with deployment of a 3.25 mm diameter x 28 mm length Karen Xpedition drug-eluting stent deployed at 16 atmospheres, followed by a 3.25 NC overlapping inflations to 18 atmospheres. 3. Final angiogram revealing 0% residual stenosis and brisk SUKUMAR 3 distal flow. 4. Conscious sedation. COMMENT: Dr. Carson has already initiated Brilinta by loading dose and we will continue the same. Bryan Crandall MD DR: SERGIO/sarah JOB# [id number] CC: Taylor Carson MD [facility]
--- NOTE | 2018-04-29 19:23 | NUR ---
Early mobility Activity level b. Patient will be encouraged to participate in all self care activities and ambulate at least once during this shift. Patient will use bedside commode for all toileting needs.
[2018-04-29] MEDS: BRILINTA PO SCH (21:27)
[2018-04-30] VITALS (39 sets, daily range): BP systolic 101–175; BP diastolic 40–128
[2018-04-30] MEDS ORDERED: SYNTHROID ONE (05:29)
[2018-04-30] MEDS: NS 1000ML 1,000 ML IV SCH (05:32)
[2018-04-30] MEDS ORDERED: SYNTHROID PO SCH (06:30)
[2018-04-30] MEDS ORDERED: ASPIRIN ONE (07:58)
[2018-04-30] MEDS ORDERED: COZAAR ONE (07:58)
[2018-04-30] MEDS ORDERED: PROTONIX PO ONE (07:59)
[2018-04-30] MEDS: BRILINTA PO SCH (08:05)
[2018-04-30] MEDS: COZAAR PO SCH (08:05)
[2018-04-30] MEDS: TOPROL XL PO SCH (08:07)
[2018-04-30] MEDS ORDERED: ASPIRIN EC PO SCH (09:00)
[2018-04-30] MEDS ORDERED: PROTONIX PO SCH (09:00)
--- NOTE | 2018-04-30 09:30 | NUR ---
DISCHARGE PLAN CASE MANAGEMENT VISITED WITH PATIENT CONCERNING DISCHARGE PLAN AND NEEDS. LIVES AT HOME WITH . IS VERY INDEPENDENT OF ADLS. DENIES NEED FOR DME OR HOME OXYGEN. REFUSED HOME HEALTH OR OUTPATIENT SERVICES. DR. FANG IS PCP. HAS FINANCIAL ABILITY TO FOR MEDICATIONS UPON DISCHARGE IF NEEDED. DISCHARGE GOAL IS TO DISCHARGE HOME WITH AND CONTINUE SELF CARE. CM WILL CONTINUE TO FOLLOW FOR DISCHARGE NEEDS.
--- NOTE | 2018-04-30 09:50 | NUR ---
Dr. Alli Carson at bedside. New orders received for discharge.
[2018-04-30] MEDS ORDERED: AMLO2.5T2 PO (10:04)
[2018-04-30] MEDS ORDERED: PANT40TA3 PO (10:04)
[2018-04-30] MEDS ORDERED: LOSA50TA2 PO (10:04)
[2018-04-30] MEDS ORDERED: TICA90TA PO (10:04)
--- NOTE | 2018-04-30 11:10 | NUR ---
Ambulation Pt ambulated to bathroom with no assistance. Steady gait noted.
--- NOTE | 2018-04-30 11:15 | NUR ---
Discharge Discharge instructions given to pt. Educated pt on importance of follow up apt with Dr. Carson, pt verbalized understanding. Educated pt to remove dressing from right groin tomorrow and that he can shower but not submerge or take baths for 3 days, pt verbalized understanding. Educated pt on new medications and side effects, pt verbalized understanding. Instructed patient to follow a cardiac diet at home, pt verbalized understanding. Educated pt on reportable s/s related to heart cath site such as bleeding and if bleeding occurs to hold pressure and report to ER, pt verbalized understanding. Answered all of patient and families questions. Right groin site soft with no edema or s/s of hematoma noted. Dressing c/d/i. Discontinued IV, catheter tip intact. No bleeding, redness, swelling, heat or pain noted. Pt transferred off unit via wheelchair to private vehicle. No s/s of distress noted.
--- NOTE | 2018-04-30 21:09 | DSH ---
DATE OF DISCHARGE: 04/30/2018 FINAL DIAGNOSES: Coronary artery disease with critical 95% proximal right coronary in-stent stenosis, post-PCI with PTCA followed by stent deployment 3.25 into 33 mm stent with post-dilatation; hypertension; hypertensive heart disease; obesity; dyslipidemia; mild LV systolic dysfunction with 48% ejection fraction. Please refer to my history and physical to the point of my impression. HOSPITAL COURSE: The patient is a 63-year-old white male, who over a month ago, has had a perfusion study with prior inferior infarct and underwent acute intervention with RCA stent and he had an inferoposterior and some lateral ischemic substrate and was advised cardiac catheterization. He delayed it and now decided to undergo heart catheterization and was noted to have a very critical 90-95% stenosis in the proximal right coronary artery with in-stent stenosis and Dr. Crandall was called and PCI was performed. See the details in my cath report and good results were obtained. He was kept in the ICU. His blood pressure was initially high and his medications were optimized and he is doing well and groin looks clean. His vital signs are stable and his cardiopulmonary status is stable and he will be dismissed home on amlodipine 2.5 mg once a day, losartan 100 mg once a day, Protonix 40 mg once a day, Brilinta 90 mg twice a day. Plavix was stopped noted. Amlodipine is a new medication because his blood pressure is not under control, aspirin 81 mg once a day, hydrochlorothiazide 25 mg once a day, Levothroid 75 mcg once a day, metoprolol 100 mg twice a day, Protonix 40 mg once a day, potassium 10 mEq once a day, Crestor 20 mg once a day and we will see him back in the office on 05/10/2018 for a followup at 02:15. Laxmichand MD Alli DR: SUSANA/sarah JOB# [id number]
== END 2018-04-30 11:15 | disposition home or self-care (01) | DRG 247 ==
LOC: SDC 06:50 → ICU 09:12 → UNDOADMIN 09:12 → ICU 09:19
PROVIDERS: ADMIT Specialist; ATTEND Specialist
PROC: 4A023N7 Measurement of Cardiac Sampling and Pressure, Left Heart, Percutaneous Approach (ICD-10-PCS; principal; 2018-04-29)
PROC: 027034Z Dilation of Coronary Artery, One Artery with Drug-eluting Intraluminal Device, Percutaneous Approach (ICD-10-PCS; 2018-04-29)
PROC: B2111ZZ Fluoroscopy of Multiple Coronary Arteries using Low Osmolar Contrast (ICD-10-PCS; 2018-04-29)
PROC: B2151ZZ Fluoroscopy of Left Heart using Low Osmolar Contrast (ICD-10-PCS; 2018-04-29)
DX: T82.855A Stenosis of coronary artery stent, initial encounter (principal); I50.42 Chronic combined systolic (congestive) and diastolic (congestive) heart failure; E66.9 Obesity, unspecified; E78.5 Hyperlipidemia, unspecified; I11.0 Hypertensive heart disease with heart failure; I25.10 Atherosclerotic heart disease of native coronary artery without angina pectoris; Y83.1 Surgical operation with implant of artificial internal device as the cause of abnormal reaction of the patient, or of later complication, without mention of misadventure at the time of the procedure; I25.2 Old myocardial infarction; Z79.02 Long term (current) use of antithrombotics/antiplatelets; Z79.82 Long term (current) use of aspirin; Z79.899 Other long term (current) drug therapy; Z87.891 Personal history of nicotine dependence; Z80.0 Family history of malignant neoplasm of digestive organs; Z82.5 Family history of asthma and other chronic lower respiratory diseases; Z68.33 Body mass index [BMI] 33.0-33.9, adult
CPT/HCPCS: 36415; 71046; 75630; 80048; 85025; 85610; 85730; 93005; 93458; 99152; 99153; C1760; C1874; C1887; C1894; C9600; G0378; J0583; J1644; J2250; J3010; J7030; Q9967; C1769

== ENCOUNTER → 2018-12-23 | Outpatient (CLI) | payer MEDICARE, OTHER ==
[~2018-12-23] MED LIST changes: +AMLO2.5T2 PO; +LISI1TAB19 PO; -LISI1TAB5 PO; +LOSA50TA2 PO; -NS 1000ML 1,000 ML ONE; -PHENERGAN PO ONE; +TICA90TA PO; -VALIUM PO ONE
[2018-12-23 14:07] LABS: MEAN CORP HGB 28.7 pg (26-34)
[2018-12-23 14:35] LABS: CALCIUM 9.2 mg/dL (8.4-10.5); CARBON DIOXIDE 31.3 mmol/L (20.0-32)
== END | disposition home or self-care (01) ==
LOC: LAB 13:55
PROVIDERS: ATTEND Specialist
DX: I11.0 Hypertensive heart disease with heart failure (principal); I50.9 Heart failure, unspecified; E05.90 Thyrotoxicosis, unspecified without thyrotoxic crisis or storm; R79.89 Other specified abnormal findings of blood chemistry; Z79.899 Other long term (current) drug therapy
CPT/HCPCS: 36415; 80053; 83036; 84443; 85027

== ENCOUNTER → 2019-08-15 | Outpatient (CLI) | payer MEDICARE, OTHER ==
[~2019-08-15] MED LIST changes: -ASPI-484 PO; +ASPI-485 PO
--- NOTE | 2019-08-15 17:39 | DIREP ---
PROCEDURE: CT SPINE LUMBAR W/O TECHNIQUE:Axial cuts were obtained through the lumbar spine. The images were viewed at bone settings. COMPARISON:[facility], CT, CT PELVIS W/O, 08/15/2019, 03:00 PM. INDICATIONS:DEGENERATIVE LUMBAR DISC DISEASE, LEFT LEG SCIATICA FINDINGS: ALIGNMENT:Levoscoliosis of the lumbar spine. The angle of levoscoliosis is 14.8 as measured from the superior cortex of L2 to the inferior cortex of L4. There is left lateral subluxation of the L4 vertebrae by approximately 1.3 cm as compared to L5. On the sagittal images, there is minimal anterolisthesis of L3 on L4. VERTEBRAE:No acute compression fractures are seen. Facet hypertrophy noted. Calcification of the annulus identified at L4-5 as well as at L5-S1 posteriorly. PARASPINAL AREA:A cyst identified in the upper pole of the right kidney, measuring approximately 2.6 x 2.5 cm in size. A dumbbell-shaped cyst in the right renal pelvis measuring 3 x 4.1 cm in size. Curvilinear calcifications in the right kidney may be associated with a cyst of the upper pole. The findings do not appear to represent renal calcifications. A infrarenal aneurysm of the abdominal aorta measuring 3.2 x 3.2 cm in size, best seen on transaxial image number 40, series 3. A follow-up sonogram of the kidneys as well as the aorta is recommended. Degenerative vacuum phenomenon at L4-5 with vertebral endplate sclerosis. Ventral osteophytes at L3-4, L4-5 and L5-S1. Mild scarring or atelectasis in the right lung base. Diverticulosis of the sigmoid, without evidence for diverticulitis. Retained fecal matter in the rectosigmoid. OTHER:No additional findings. LUMBAR DISC LEVELS T12-L1:No focal disc. No foraminal or central stenosis. Mild facet and ligamenta flava hypertrophy noted. L1-L2:No focal disc. Minimal disc bulge. Neural foramen and lateral recesses are preserved. Mild to moderate facet and ligamenta flava hypertrophy noted. L2-L3:No focal disc. Mild to moderate disc bulge. Moderate to severe central stenosis with the midsagittal diameter of the spinal canal at 1 cm. Severe facet and ligamenta flava hypertrophy noted. No focal disc is seen. L3-L4:Moderate to significant disc bulge. Neural foramen are preserved. Severe lateral recess narrowing. Severe central stenosis. Moderate to severe facet and ligamenta flava hypertrophy noted. L4-L5:Disc bulge in the midline and towards the right central osteophytes. Narrowing of the neural foramen and lateral recess on the right side with lateral recess narrowing also seen on the left side. Mild to moderate central stenosis. Severe facet hypertrophy noted. L5-S1:Disc bulge. Narrowing of neural foramina on the left side with bilateral lateral recess narrowing. Severe facet hypertrophy noted. No central stenosis. CONCLUSION:Levoscoliosis of the lumbar spine with minimal degenerative anterolisthesis of L3 on L4. Calcification of the annulus posteriorly at L4-5 and L5-S1. No acute compression fractures are seen. Multilevel disc bulges with central stenosis and narrowing of neural foramen and lateral recesses as above. Cysts involving the right upper pole of the kidney and the midpole recommend follow-up sonogram. For infrarenal aneurysm of the abdominal aorta measuring 3.2 x 3.2 cm in size with extensive atheromatous calcifications in the aorta and the common iliac artery. Dictated by: Pranay Harden MD on 08/15/2019 at 05:29 PM
--- NOTE | 2019-08-15 17:43 | DIREP ---
PROCEDURE:CT PELVIS W/O COMPARISON:[facility], CT, CT SPINE LUMBAR W/O, 08/15/2019, 02:58 PM. INDICATIONS:DEGENERATIVE LUMBAR DISC DISEASE, LEFT LEG SCIATICA TECHNIQUE:Axial images were created through the pelvis without intravenous contrast material. No oral contrast was administered. Sagittal and coronal reconstructions were performed from source images. The study was reviewed on abdominal, lung, liver and bone windows. FINDINGS: AORTA/VASCULAR:Atheromatous calcifications in the aorta and the common iliac arteries. Infrarenal aneurysm of the abdominal aorta, see separate report of the CT of the pelvis. RETROPERITONEUM:Normal. No mass or adenopathy. No adenopathy in the pelvis. Small benign lymph nodes in the inguinal region. BOWEL/MESENTERY:Normal. There is no intestinal obstruction, free fluid, free air or mesenteric inflammatory changes. The appendix is not definitely visualized. Severe diverticulosis of the sigmoid. No inflammatory changes, free air or free fluid is seen. No colonic wall thickening is identified. ABDOMINAL WALL:No inguinal or ventral hernias are seen. PELVIC ORGANS:Enlarged prostate. The prostate measures 4.2 x 5.8 by 5 cm in size. Central and peripheral prostatic calcifications. Phleboliths in the pelvis. BONES:Normal for age. No bony lesion or acute fracture. No acute fractures in the sacrum, iliac bone, acetabulum or the pubic rami. No fractures of the proximal femur is seen. DJD in both hips. Mild sclerosis of the sacroiliac joints. OTHER:Negative. CONCLUSION:No acute fracture is seen in the pelvis. DJD with severe joint space narrowing of the superior joint space of the hips along with DJD in the sacroiliac joints. A small infrarenal aneurysm of the abdominal aorta. Diverticulosis of the sigmoid without evidence for diverticulitis. Moderately enlarged prostate noted. Dictated by: Pranay Harden MD on 08/15/2019 at 05:39 PM
== END | disposition home or self-care (01) ==
LOC: RAD 14:27
PROVIDERS: ATTEND Specialist
DX: M51.36 Other intervertebral disc degeneration, lumbar region (principal); N40.0 Benign prostatic hyperplasia without lower urinary tract symptoms
CPT/HCPCS: 72131; 72192

== ENCOUNTER → 2019-08-23 | Outpatient (CLI) | payer MEDICARE, OTHER ==
--- NOTE | 2019-08-23 13:36 | DIREP ---
PROCEDURE:US KIDNEYS-BILAT COMPARISON:None. INDICATIONS:RIGHT RENAL CYST, HTN TECHNIQUE:Ultrasound examination was performed of the kidneys and bladder. FINDINGS: LEFT KIDNEY:12.23 cm x 6.09 cm x 6.74 cm RIGHT KIDNEY:12.99 cm x 6.38 cm x 6.50 cm RIGHT KIDNEY: Normal echogenicity. No hydronephrosis. There is a 2.4 x 2.2 x 2.3 cm thin-walled anechoic lesion with posterior acoustic enhancement consistent with a cyst at the upper pole. The cyst demonstrates a thin central septation. No increased vascularity. LEFT KIDNEY: Normal echogenicity. No hydronephrosis. There is a 3.2 x 3.4 x 3.2 cm cyst at the lower pole left kidney. BLADDER:Unremarkable for degree of distention. No significant postvoid volume. OTHER:Negative. CONCLUSION: 1. Bilateral benign appearing renal cysts. Dictated by: Jorge Luis Curry MD on 08/23/2019 at 01:33 PM
== END | disposition home or self-care (01) ==
LOC: RAD 12:11
PROVIDERS: ATTEND Specialist
DX: N28.1 Cyst of kidney, acquired (principal); I10 Essential (primary) hypertension
CPT/HCPCS: 76770

== ENCOUNTER → 2019-08-24 | Outpatient (CLI) | payer MEDICARE, OTHER ==
--- NOTE | 2019-08-24 11:19 | DIREP ---
PROCEDURE:US AORTA COMPLETE STUDY COMPARISON:None. INDICATIONS:AORTIC ANEURYSM TECHNIQUE:Ultrasound was performed of the abdominal aorta. Mclean-scale, color flow and spectral doppler images were acquired. FINDINGS: PROXIMAL AORTIC DIAMETER (cm):2.5 x 3.3 x 2.6 cm MID-AORTIC DIAMETER (cm):2.4 x 2.7 cm DISTAL AORTIC DIAMETER (cm):1.6 x 2.6 cm RIGHT COMMON ILIAC DIAMETER (cm):1.1 x 1.4 cm LEFT COMMON ILIAC DIAMETER (cm):1.2 x 1.4 cm PROXIMAL AORTIC VELOCITY (cm/s):23.6 cm/s MID-AORTIC VELOCITY (cm/s):16.9 cm/s DISTAL AORTIC VELOCITY (cm/s):55.6 cm/s RIGHT COMMON ILIAC VELOCITY (cm/s):47.2 cm/s LEFT COMMON ILIAC VELOCITY (cm/s):85.5 cm/s CONCLUSION:Aneurysm of the infrarenal aorta measures 3.3 cm. Dictated by: ANA LUISA Physician on 08/24/2019 at 11:00 AM Read in [facility]
== END | disposition home or self-care (01) ==
LOC: RAD 08:38
PROVIDERS: ATTEND Specialist
DX: I71.4 Abdominal aortic aneurysm, without rupture (principal)
CPT/HCPCS: 76770

== ENCOUNTER → 2020-07-16 | Outpatient (CLI) | payer MEDICARE, OTHER ==
[~2020-07-16] MED LIST changes: -LISI1TAB19 PO; +LISI1TAB39 PO
[2020-07-16 14:13] LABS: PLATELET COUNT 348 10^3/uL (150-400); RED CELL DISTRIBUTION WIDTH 14.6 % (11.5-14.5)
[2020-07-16 14:19] LABS: BILIRUBIN,URINE NEGATIVE (NEGATIVE); UA COLOR YELLOW; UROBILINOGEN,URINE 0.2 E.U./dL (0.2)
[2020-07-16 14:48] LABS: ALANINE AMINOTRANSFERASE(ML) 29 U/L (12-78); ALKALINE PHOSPHATASE 78 U/L (50-136); ASPARTATE AMINO TRANSFERASE 17 U/L (0-35); CALCIUM 8.8 mg/dL (8.4-10.5); CARBON DIOXIDE 29.9 mmol/L (20.0-32); GLUCOSE 116 mg/dL (70-110)
[2020-07-16 18:32] LABS: BAND NEUTROPHILS 2 % (2-6); BASOPHIL 1 % (0-2); EOSINOPHIL 1 % (1-4); LYMPHOCYTE 9 % (25-36); MONOCYTE 5 % (3-9); SEGMENTED NEUTROPHILS 82 % (31-76)
--- NOTE | 2020-07-17 09:14 | DIREP ---
PROCEDURE:CT CHEST W/O COMPARISON:None. INDICATIONS:COUGH, SOB, SEPSIS TECHNIQUE:Helical sections through the chest were performed from the lung apices through the diaphragms without IV contrast. Sagittal and coronal reconstructions are obtained from source images. FINDINGS: LUNGS:Mild linear parenchymal scarring and/or subsegmental atelectasis is seen in the right base and lingula. No infiltrates or consolidation are seen bilaterally. An 8 mm x 4 mm focal density is seen along the right minor fissure most consistent with a fissural lymph node. PLEURA:Normal. No mass or effusion. CARDIAC:Median sternotomy changes are seen. The heart size is normal. MEDIASTINUM:Normal. No mass or adenopathy. AMMY:Normal. No mass or adenopathy. AORTA:Normal. No aneurysm. CHEST WALL:Normal. No mass or axillary adenopathy. LIMITED ABDOMEN:Limited images of the upper abdomen partially visualize the upper pole of the right kidney with prominent right perinephric stranding only partially visualized. BONES:Degenerative changes are seen in the thoracic spine. OTHER:Negative. CONCLUSION: 1. There is mild linear parenchymal scarring and/or subsegmental atelectasis in the right base and lingula without infiltrates or consolidation. 2. Limited images of the upper abdomen partially include the upper pole of the right kidney which demonstrates prominent right perinephric stranding. Recommend further evaluation with follow-up CT scan of the abdomen and pelvis with and without contrast. Dictated by: Twin Byrnes M.D. On 07/17/2020 at 09:07 AM
== END | disposition home or self-care (01) ==
LOC: RAD 13:55
PROVIDERS: ATTEND Specialist
DX: A41.9 Sepsis, unspecified organism (principal); R05 Cough; R06.02 Shortness of breath; M47.814 Spondylosis without myelopathy or radiculopathy, thoracic region
CPT/HCPCS: 36415; 71250; 80053; 81003; 81015; 82728; 83036; 84484; 85007; 85027; 85379; 86140; 87633

== ENCOUNTER → 2020-07-23 | Outpatient (CLI) | payer MEDICARE, OTHER ==
--- NOTE | 2020-07-23 09:37 | DIREP ---
PROCEDURE:CT ABDOMEN/PELVIS W/ CONTRAST COMPARISON:[facility], CT, CT SPINE LUMBAR W/O, 08/15/2019, 02:58 PM. [facility], CT, CT CHEST W/O, 07/16/2020, 04:13 PM. INDICATIONS:RIGHT RENAL UPPER POLE MASS TECHNIQUE:Axial images were created through the abdomen and pelvis with non-ionic intravenous contrast material. Oral contrast was administered. Sagittal and coronal reconstructions were performed from source images. FINDINGS: LUNG BASES:Mild linear subsegmental atelectasis and/or parenchymal scarring is seen in the right lung base. A small hiatal hernia is seen. LIVER:Normal. No significant liver lesions are identified. BILIARY:Normal. No visible dilatation or calcification. PANCREAS:Normal. No lesion, fluid collection, ductal dilatation, or atrophy. SPLEEN:Normal. No enlargement or focal lesion. ADRENALS:Normal. No mass or enlargement. URINARY TRACT:A 2.6 cm cyst is again seen in the upper pole of the right kidney, however there is prominent stranding and inflammatory changes now seen adjacent to the upper pole of the right kidney. A 4 cm cyst is also seen in the upper to mid pole of the right kidney and 1 cm cyst in the mid to lower pole of the right kidney. 1.3 cm hypodense lesion or cyst is seen in the upper pole of the left kidney with peripheral rim calcification and or [id number]. Additionally, 3.5 cm cyst is seen in the lower pole of the left kidney and a small sub cm cortical cyst of the left kidney. No hydronephrosis is seen. AORTA/VASCULAR:A 3.3 cm infrarenal abdominal aortic aneurysm is not significantly changed. RETROPERITONEUM:Normal. No mass or adenopathy. BOWEL/MESENTERY:Numerous diverticula are seen of the left colon and sigmoid colon. No dilated loops of large or small bowel or inflammatory changes are seen. The appendix is normal. ABDOMINAL WALL:Normal. No mass or hernia. PELVIC ORGANS:Normal. No visible mass. Pelvic organs appropriate for patient age. BONES:Degenerative changes are seen in the lumbar spine with degenerative disc disease at L4-5 with a mild levoscoliosis. OTHER:Negative. CONCLUSION: 1. A 2.6 cm cyst is again demonstrated in the upper pole of the right kidney, however there is interval development of prominent inflammatory changes and perinephric stranding adjacent to the upper pole right renal cyst since prior exam suggestive of possible infection and or rupture of the cyst. 2. Multiple bilateral renal cysts as described above. Additionally, 1.3 cm complex cyst with peripheral rim calcification and/or milk of calcium is seen in the upper pole of the left kidney. 3. Diverticulosis of the left colon and sigmoid colon without CT findings of diverticulitis. Additional findings as described above. Dictated by: Twin Byrnes M.D. On 07/23/2020 at 09:12 AM
== END | disposition home or self-care (01) ==
LOC: RAD 08:01
PROVIDERS: ATTEND Specialist
DX: I71.4 Abdominal aortic aneurysm, without rupture (principal); N28.1 Cyst of kidney, acquired; K57.30 Diverticulosis of large intestine without perforation or abscess without bleeding; M47.814 Spondylosis without myelopathy or radiculopathy, thoracic region; A41.9 Sepsis, unspecified organism; R05 Cough; R06.02 Shortness of breath; M51.36 Other intervertebral disc degeneration, lumbar region
CPT/HCPCS: 74177; Q9965

== ENCOUNTER → 2020-07-24 | Outpatient (CLI) | payer MEDICARE, OTHER ==
[~2020-07-24] MED LIST changes: +FLUT1BLS3 HHN; +LEVO500T8 PO; +MAGN400T27 PO
[2020-07-24 17:27] LABS: MEAN CORP HGB 29.5 pg (26-34); RED CELL DISTRIBUTION WIDTH 14.2 % (11.5-14.5)
[2020-07-24 17:51] LABS: ALANINE AMINOTRANSFERASE(ML) 40 U/L (12-78); ALKALINE PHOSPHATASE 84 U/L (50-136); ASPARTATE AMINO TRANSFERASE 21 U/L (0-35); CALCIUM 8.7 mg/dL (8.4-10.5); CARBON DIOXIDE 32.6 mmol/L (20.0-32); GLUCOSE 145 mg/dL (70-110)
== END | disposition home or self-care (01) ==
LOC: LAB 17:08
PROVIDERS: ATTEND Specialist
DX: A41.9 Sepsis, unspecified organism (principal)
CPT/HCPCS: 36415; 80053; 83605; 83880; 84145; 84484; 85027; 85379; 85651; 86140; 87040

== ENCOUNTER → 2023-10-20 | Outpatient (CLI) | payer MEDICARE, OTHER ==
[~2023-10-20] MED LIST changes: +CLOP-28 PO; -CLOP75TA52 PO; +LEVO-16 PO; -LEVO500T8 PO; +LOSA-399 PO; +LOSA-400 PO; -LOSA100T14 PO; +LOSA100T15 PO; -LOSA25TA2 PO; -LOSA50TA2 PO; +POTA-129 PO; -POTA10TA6 PO
== END | disposition home or self-care (01) ==
LOC: RAD 09:46
PROVIDERS: ATTEND Specialist
DX: I10 Essential (primary) hypertension (principal); E78.5 Hyperlipidemia, unspecified; Z95.1 Presence of aortocoronary bypass graft
CPT/HCPCS: 78452; 93306; A9500